=== PATIENT | female | born 1950 | race Caucasian/White ===

== ENCOUNTER 2018-04-17 13:16 | Emergency (ER) | payer OTHER ==
[~2018-04-17] VITALS: Ht 160 cm; Wt 65.7 kg
[2018-04-17] MEDS ORDERED: SULF1TAB49 PO (13:39)
[2018-04-17] MEDS ORDERED: sulfamethoxazole/trimethoprim DS (800/160mg) tablet PO ONE (13:40)
[2018-04-17 13:51] VITALS: BP 149/47
[2018-04-19] MEDS ORDERED: DOXY100C43 PO (13:16)
== END 2018-04-17 13:53 | disposition home or self-care (01) ==
LOC: ER 13:17
DX: L02.31 Cutaneous abscess of buttock (principal); I48.91 Unspecified atrial fibrillation; F17.200 Nicotine dependence, unspecified, uncomplicated; Z88.5 Allergy status to narcotic agent; Z79.899 Other long term (current) drug therapy
CPT/HCPCS: 99283

== ENCOUNTER 2018-04-22 11:13 | Emergency (ER) | payer OTHER ==
[~2018-04-22] VITALS: Ht 160 cm; Wt 64.5 kg
[~2018-04-22 11:13] MED LIST: DOXY100C43 PO; SULF1TAB49 PO
[2018-04-22 11:25] VITALS: BP 137/61
[2018-04-22] MEDS ORDERED: LIDOcaine/epinephrine TOPICAL 5 ML BTL TOP ONE (11:50)
== END 2018-04-22 12:36 | disposition home or self-care (01) ==
LOC: ER 11:14
DX: L02.31 Cutaneous abscess of buttock (principal); I48.91 Unspecified atrial fibrillation; Z88.5 Allergy status to narcotic agent; Z79.899 Other long term (current) drug therapy
CPT/HCPCS: 99283; A6266

== ENCOUNTER → 2024-08-09 | Emergency (ER) | payer MEDICARE ==
[~2024-08-09] VITALS: Ht 157.5 cm; Wt 74.1 kg
[~2024-08-09] MED LIST changes: +ALBU6.7H14 INH; +APIX5TAB3 PO; -DOXY100C43 PO; -SULF1TAB49 PO; +[UNRECOGNIZED DRUG - OTHER] PO; +[UNRECOGNIZED DRUG - OTHER] PO
[2024-08-09 17:44] VITALS: BP 159/68; PULSE 67; RESP 16; TEMP 98.6; O2SAT 99
== END | disposition left against medical advice (07) ==
LOC: ER 17:38
DX: R00.1 Bradycardia, unspecified (principal); Z53.21 Procedure and treatment not carried out due to patient leaving prior to being seen by health care provider
CPT/HCPCS: 93005